=== PATIENT | female | born 1990 ===

== ENCOUNTER 2024-11-11 01:21 | Emergency (ER) | payer MEDICAID ==
[2024-11-11] MEDS: HYDROmorphone 1 MG/ML Syringe IVPUSH ONE (01:20)
[2024-11-11] MEDS: Sodium Chloride 0.9% 1,000 ML IV SCH (01:20)
[~2024-11-11 01:21] MED LIST: Naloxone 2 MG/2 ML Syringe IVPUSH PRN; Ondansetron 4 MG in Sodium Chloride 0.9% 50 ML IV ONE; Sodium Chloride 0.9% 10 ML Syringe FLUSH PRN
[2024-11-11] MEDS: Ondansetron 4 MG/2 ML SDV IVPUSH ONE (01:30)
[2024-11-11 02:04] LABS: APPEARANCE,URINE CLOUDY (CLEAR); BILIRUBIN,URINE SMALL (NEGATIVE); COLOR,URINE DARK YELLOW (YELLOW); GLUCOSE,URINE NEGATIVE (NEGATIVE); KETONES,URINE TRACE (NEGATIVE); LEUKOCYTE ESTERASE,URINE NEGATIVE (NEGATIVE); NITRITE,URINE NEGATIVE (NEGATIVE); OCCULT BLOOD,URINE LARGE (NEGATIVE); PROTEIN,URINE 100 (NEGATIVE); UROBILINOGEN,URINE >=8.0 mg/dL (0.2-1.0)
[2024-11-11 02:05] LABS: HEMATOCRIT 39.4 % (37.0-47.0); MEAN CORPUSCULAR HEMOGLOBIN 27.5 pg (27.0-34.0); MEAN CORPUSCULAR VOLUME 83.3 fL (80-100); PLATELET COUNT,PLT 228 10^3/uL (150-450); RED BLOOD CELL COUNT 4.73 10^6/uL (4.2-5.4); WHITE BLOOD CELL COUNT,WBC 17.6 10^3/uL (5.0-10.0)
[2024-11-11 02:06] LABS: BASOPHILS PERCENT AUTO 0.1 % (0.0-1.0); EOSINOPHILS PERCENT AUTO 0.2 % (1.0-3.0); LYMPHOCYTES PERCENT AUTO 13.7 % (20.5-50.1); MONOCYTES PERCENT AUTO 5.9 % (2-8); NEUTROPHILS PERCENT AUTO 80.1 % (42.2-75.2)
[2024-11-11 02:08] LABS: AMPHETAMINES,URINE POSITIVE (NEGATIVE); BARBITURATES,URINE NEGATIVE (NEGATIVE); BENZODIAZEPINE,URINE NEGATIVE (NEGATIVE); MDMA (ECSTASY), URINE POSITIVE (NEGATIVE); METHADONE,URINE NEGATIVE (NEGATIVE); METHAMPHETAMINES,URINE POSITIVE (NEGATIVE); OPIATES,URINE POSITIVE (NEGATIVE); OXYCODONE,URINE NEGATIVE (NEGATIVE); PHENCYCLIDINE,URINE NEGATIVE (NEGATIVE); TCA,URINE NEGATIVE (NEGATIVE)
[2024-11-11] MEDS ORDERED: Piperacillin/Tazobactam 3.375 GM in Sodium Chloride 0.9% 100 ML IV ONE (02:10)
[2024-11-11 02:11] LABS: ALBUMIN 3.2 g/dL (3.4-5.0); ANION GAP 17.8 mEq/L (7-13); BILIRUBIN TOTAL 1.4 mg/dL (0.2-1.0); BUN/CREATININE RATIO 11.8 (No establ ref range); C-REACTIVE PROTEIN 15.72 ng/dL (<=0.50); CREATININE 0.85 mg/dL (0.55-1.02); EST CRCL DRUG DOSING (CG) 80.53 mL/min; POTASSIUM,K 4.8 mmol/L (3.5-5.1)
[2024-11-11 02:18] LABS: A/G RATIO 0.67
[2024-11-11] MEDS: Piperacillin/Tazobactam 4.5 GM in Sodium Chloride 0.9% 100 ML IV ONE (02:21)
[2024-11-11 02:23] LABS: BACTERIA,URINE FEW /HPF (0-FEW/HPF); EPITHELIAL CELLS,URINE MODERATE /HPF (NOT SEEN); RBC,URINE 50-75 /HPF (0-5)
[2024-11-11 02:29] LABS: BAND PERCENT MAN 1 %; LYMPHOCYTES PERCENT MAN 14 % (20-50); MONOCYTES PERCENT MAN 7 % (2-8); SEG NEUTROPHILS PERCENT MAN 78 % (42-75)
[2024-11-11] MEDS: metroNIDAZOLE 250 MG Tab PO ONE (02:34)
[2024-11-11 02:43] LABS: LACTIC ACID 0.6 mmol/L (0.4-2.0)
[2024-11-11] MEDS: Iopamidol 755 Mg/ML 100 ML Bottle IVPUSH ONE (03:04)
[2024-11-11 03:19] VITALS: BP 114/70; PULSE 93
[2024-11-11] MEDS: Levofloxacin 500 MG Tab PO ONE (03:55)
== END 2024-11-11 04:00 | disposition left against medical advice (07) ==
LOC: DL.ED 01:21
DX: J18.9 Pneumonia, unspecified organism (principal); F15.10 Other stimulant abuse, uncomplicated
CPT/HCPCS: 36415; 74174; 80053; 80305; 81001; 83605; 84703; 85025; 86140; 96361; 96365; 96375; 99285; A9270; J1171; J2405; J2543; J7030; Q9967